=== PATIENT | female | born 1980 | race Caucasian/White ===

== ENCOUNTER 2017-12-08 22:18 | Emergency (ER) | payer BC ==
[2017-12-08] MEDS ORDERED: Budesonide 0.5 MG/2 ML Neb Susp NEB ONE (23:12)
[2017-12-08] MEDS ORDERED: Albuterol/Ipratropium 3.0-0.5 MG/3 ML Neb Soln NEB ONE (23:12)
--- NOTE | 2017-12-08 23:50 | EDM.PDOC ---
ED HPI GENERAL MEDICAL PROBLEM - General Chief Complaint: Allergic Reaction Stated Complaint: REACTION/CAN'T BREATHE Time Seen by Provider: 12/08/17 23:09 Source of Information: Reports: Patient, RN Notes Reviewed History Limitations: Reports: No Limitations - History of Present Illness INITIAL COMMENTS - FREE TEXT/NARRATIVE: Brought by her dad in by her Chief complaint Difficulty breathing History of present illness 37-year-old female with the history of asthma as a child and then in June she was diagnosed with having asthma again. Suspects environmental allergies. Today she wasn't exposed to anything except that she did take ibuprofen earlier. Increasing shortness of breath and wheezing over the course of the evening. No chest pain no abdominal pain no nausea or vomiting No fainting or weakness abd pain Pain Score (Numeric/FACES): 7 - Related Data Allergies Allergy/AdvReac Type Severity Reaction Status Date / Time cat dander Allergy Itching Verified 12/08/17 22:28 grass pollen Allergy Itching Verified 12/08/17 22:28 mold Allergy Bronchospas Verified 12/08/17 22:28 ms tree and shrub pollen Allergy Itching Verified 12/08/17 22:28 Home Meds: Home Meds Albuterol Sulfate [Proair Hfa] 2 puff INH Q4H PRN 12/08/17 [History] Albuterol [Proventil HFA] 2 puff INH Q4H PRN #1 inhaler 12/08/17 [Rx] Budesonide/Formoterol Fumarate [Symbicort 160-4.5 Mcg Inhaler] 2 puff IH BID 07/27 [History] Cetirizine [ZyrTEC] 10 mg PO Q8H 12/08/17 [History] Dextroamphetamine/Amphetamine [Adderall Xr 20 mg Capsule] 1 tab PO DAILY [History] FLUoxetine HCl [Prozac] 20 mg PO DAILY 12/08/17 [History] Montelukast Sodium [Singulair] 10 mg PO DAILY 12/08/17 [History] Pantoprazole [ProTONIX] 40 mg PO DAILY 12/08/17 [History] diphenhydrAMINE [Benadryl] 25 mg PO DAILY 12/08/17 [History] predniSONE [Prednisone] 20 mg PO BID #20 tablet 12/08/17 [Rx] Past Medical History Respiratory History: Reports: Asthma, Other (See Below) Other Respiratory History: allergic asthma Gastrointestinal History: Reports: GERD LAST PULLER History: Reports: Psychiatric History: Reports: Depression Dermatologic History: Reports: Psoriasis Social & Family History - Tobacco Use Smoking Status *Q: Never Smoker - Caffeine Use Caffeine Use: Reports: Soda - Recreational Drug Use Recreational Drug Use: No ED ROS ALLERGIC REACTION - Review of Systems Review Of Systems: See Below Constitutional: Reports: Fatigue. Denies: Fever, Diaphoresis HEENT: Reports: No Symptoms Respiratory: Reports: Shortness of Breath, Wheezing. Denies: Cough Cardiovascular: Reports: No Symptoms GI/Abdominal: Reports: No Symptoms Skin: Reports: No Symptoms Neurological: Reports: No Symptoms Immunologic: Reports: Environmental Allergy ED EXAM GENERAL NO PERIP PULSE - Physical Exam Exam: See Below Exam Limited By: No Limitations General Appearance: Alert, Mild Distress, Other (Audible wheezing, although vital signs are within normal limits, she did showing increased work of breathing) Eye Exam: Bilateral Eye: Normal Inspection Ears: Normal External Exam, Normal Canal, Hearing Grossly Normal, Normal TMs Nose: Normal Inspection, Normal Mucosa Throat/Mouth: Normal Inspection, Normal Oropharynx Head: Atraumatic, Normocephalic Neck: Supple, Non-Tender. No: Lymphadenopathy (R), Lymphadenopathy (L) Respiratory/Chest: Wheezing, Prolonged Expiration, Other Cardiovascular: Normal Peripheral Pulses, Regular Rate, Rhythm Extremities: Normal Inspection, No Pedal Edema Neurological: Alert, Oriented, No Motor/Sensory Deficits Psychiatric: Normal Affect, Normal Mood Skin Exam: Warm, Dry, Intact, Normal Color, No Rash Course - Vital Signs Last Recorded V/S: Last Vital Signs Temp 36.4 C 12/08/17 22:32 Pulse 82 12/08/17 22:32 Resp 18 12/08/17 22:32 BP 143/76 H 12/08/17 22:32 Pulse Ox 98 12/08/17 22:32 - Orders/Labs/Meds Orders: Active Orders 24 hr Category Date Time Status RT Aerosol Therapy [RC] ASDIRECTED Care 12/08/17 23:13 Active Meds: Medications Discontinued Medications Generic Name Dose Route Start Last Admin Trade Name Freq PRN Reason Stop Dose Admin Albuterol/Ipratropium 3 ml 12/08/17 23:12 12/08/17 23:23 Duoneb 3.0-0.5 Mg/3 Ml NEB 12/08/17 23:13 3 ml ONETIME ONE Administration Budesonide 0.5 mg 12/08/17 23:12 12/08/17 23:23 Pulmicort NEB 12/08/17 23:13 0.5 mg ONETIME ONE Administration - Re-Assessments/Exams Free Text/Narrative Re-Assessment/Exam: 12/09/17 02:55 37-year-old female with a history of allergic asthma since June presenting with acute bronchospasm. No fever. Differential diagnosis includes aller and infection. However no fever productive cough. Possibly due to exposure to ibuprofen but she's had this before.Albuterol/ ipratropium by nebulizer Budesonide by nebuliz er logan Departure - Departure Time of Disposition: 23:49 Disposition: Home, Self-Care 01 Condition: Good Clinical Impression: Allergic asthma Qualifiers: Asthma severity: mild Asthma persistence: intermittent Asthma complication type : uncomplicated Qualified Code(s): J45.20 - Mild intermittent asthma, uncomplicated - Discharge Information Prescriptions: Albuterol [Proventil HFA] 2 puff INH Q4H PRN #1 inhaler PRN Reason: Cough wheezing chest tightness predniSONE [Prednisone] 20 mg PO BID #20 tablet Instructions: Asthma Attack Referrals: PCP,None [Primary Care Provider] - Forms: ED Department Discharge Additional Instructions: Return to emergency if worsening - My Orders Last 24 Hours: My Active Orders 12/08/17 23:13 RT Aerosol Therapy [RC] ASDIRECTED - Assessment/Plan Last 24 Hours: My Active Orders 12/08/17 23:13 RT Aerosol Therapy [RC] ASDIRECTED
== END 2017-12-08 23:57 | disposition home or self-care (01) ==
LOC: JP.ED 22:18
DX: J45.20 Mild intermittent asthma, uncomplicated (principal); K21.9 Gastro-esophageal reflux disease without esophagitis; F32.9 Major depressive disorder, single episode, unspecified; Z79.899 Other long term (current) drug therapy; Z91.018 Allergy to other foods; Z91.09 Other allergy status, other than to drugs and biological substances
CPT/HCPCS: 94640; 99285; J7620